=== PATIENT | male | born 1950 | race Caucasian/White ===

== ENCOUNTER → 2020-03-26 | Outpatient (CLI) | payer BC, MEDICARE ==
--- NOTE | 2020-03-26 12:16 | Diagnostic Imaging Report ---
PROCEDURE: CT head without contrast. TECHNIQUE: Multiple contiguous axial images were obtained through the brain without the use of intravenous contrast. Auto Exposure Controls were utilized during the CT exam to meet ALARA standards for radiation dose reduction. INDICATION: Syncope. Headache right posterior aspect. FINDINGS: There is mild cortical atrophy. Ventricles are slightly prominent consistent with atrophic state. Periventricular white matter changes are symmetrical. No evidence of intracranial hemorrhage. No mass effect. The basal cisterns are clear. The CP angles appear normal. The mastoid air cells and paranasal sinuses are well-aerated and clear. No evidence of calvarial fractures. IMPRESSION: Findings consistent with cortical atrophy with chronic white matter disease. No acute changes demonstrated. Dictated by: Dictated on workstation # [id number]
== END ==
LOC: RAD FS 11:46
PROVIDERS: ATTEND Family Medicine
DX: R55 Syncope and collapse (principal); R51 Headache; R90.82 White matter disease, unspecified
CPT/HCPCS: 70450